=== PATIENT | male | born 1995 | race Caucasian/White ===

== ENCOUNTER 2021-08-05 11:05 | Emergency (ER) | payer OTHER ==
[~2021-08-05] VITALS: Ht 188 cm; Wt 93.2 kg
[2021-08-05 12:15] VITALS: BP 136/77
[2021-08-05] MEDS ORDERED: METHOCARBAMOL 500 MG TABLET PO ONE (12:30)
[2021-08-05] MEDS ORDERED: KETOROLAC TROMETHAMINE 10 MG TABLET PO ONE (12:30)
== END 2021-08-05 12:47 | disposition home or self-care (01) ==
LOC: EMS 11:14
DX: S39.011A Strain of muscle, fascia and tendon of abdomen, initial encounter (principal); J45.909 Unspecified asthma, uncomplicated; Z88.0 Allergy status to penicillin; W18.39XA Other fall on same level, initial encounter; Y93.89 Activity, other specified; Y92.89 Other specified places as the place of occurrence of the external cause; Y99.0 Civilian activity done for income or pay
CPT/HCPCS: 99283